=== PATIENT | female | born 2000 | race Caucasian/White ===

== ENCOUNTER 2020-09-05 19:07 | Emergency (ER) | payer BC, SELFPAY ==
[2020-09-05 19:07] VITALS: BP 125/79; PULSE 83; RESP 20; TEMP 36.4; O2SAT 98; BMI 20.5
--- NOTE | 2020-09-05 19:42 | ED.VIS.GEN ---
History of Present Illness Chief Complaint: Anxiety Detail of Chief Complaint: Panic attack Informant: Patient Onset: Hours Context: Sudden Onset Timing: - - Essentially resolved Quality: Palpitations, chest pain, shortness of breath, tingling anxiety Location: Generalized Current Severity: - - Essentially resolved Maximum Severity: Severe Worsened by: No inciting factor. Patient is not taking her medications as prescribed. 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 She had a panic attack. She complained of tingling in her extremities, palpitations, chest pain, shortness of breath and nausea. Nothing triggered her attack. She reports noncompliance with medication. She made the comment self-destructive behavior . Patient denies suicidal homicidal ideation. She does report blurred vision. Her blurred vision improves with blinking. Suspect this is due to tearing. She has a mild headache presently. She denies ringing in ears decreased hearing. She denies upper respiratory symptoms. Her chest pain is resolved. Her dyspnea is resolved. The tingling has resolved. Prior similar symptoms: Yes Recent Illness/Hospitalization: No - Past Medical History (1) Anxiety disorder Status: Acute Past Medical History - Allergies and Home Meds Allergies/Adverse Reactions: Allergies Penicillins [PCN] Allergy (Verified 09/05/20 19:09) Hives Primary Care Physician: NOT,DEFINED [Primary Care Provider] - Prior records reviewed: No Surgical History: no surgical history Lives: With Family Smoking Status: Unknown if ever smoked Drugs: None Review of Systems General: Denies: Chills, Fever, Malaise Eyes: Reports: Blurred Vision - bilaterally. Denies: Visual changes - bilaterally, Diplopia ENT: Denies: Rhinorrhea, Sore throat Cardiovascular: Reports: Chest pain, Palpitations Respiratory: Reports: Dyspnea. Denies: Cough, Sputum, Dyspnea on exertion Gastrointestinal: Reports: Nausea. Denies: Abdominal pain, Vomiting, Diarrhea, Constipation, Melena, Hematochezia Genitourinary: Denies: Dysuria, Hematuria, Frequency Musculoskeletal: Denies: Back pain, Extremity Pain Skin: Denies: Rash Neurological: Reports: Headache, Parasthesia. Denies: Weakness Psych: Reports: Anxiety Endocrine: Denies: Polyuria, Polydipsia Physical Exam Vital Signs/Narrative: Vital Signs Temp Pulse Resp BP Pulse Ox 09/05/20 19:07 97.5 F L 83 20 H 125/79 H 98 Inital Vital Signs reviewed: Yes General: Well nourished, Well developed, No Acute Distress Head: Normocephalic, Atraumatic Eyes: Perrl, EOMI ENT: Moist mucous membranes, No rhinorrhea Neck: Supple, Nontender Cardiovascular: Regular rate, Regular rhythm, No murmurs, Normal S1, Normal S2 Respiratory: No distress, CTA bilaterally, Chest nontender Extremities: Nontender, No edema Skin: Normal color, No rash Neurological: Alert, Oriented x3, Cranial nerves II-XII grossly intact, Normal Strength, Normal Sensation Psychological: Normal affect, Normal Mood Diagnostic/Tx/Re-eval - Medical Decision Making Patient had an anxiety attack. This is probably due to noncompliance with medication. Since she still has mild symptoms and has a ride home she was given Ativan. She states she will hold resume her medicines as prescribed. ED Disposition - Plan for ED Patient: Disposition: Home or Assisted Living Diagnosis: Panic attack Referrals: NOT,DEFINED [Primary Care Provider] - Additional Instructions: Follow-up with your doctor as needed.
--- NOTE | 2020-09-05 19:48 | ED.DCSUM_ITS ---
- ER Visit Summary Date of Service: 09/05/20 Chief Complaint: [] History of Present Illness: The patient is a 20 F [] Physical Examination: [] Test Results: [] Emergency Department Course and Treatment: [] Treatment Plan: [] Disposition: [] Impression: [] This note was generated with [employer] software. It may contain incorrect words, spelling, and punctuation that were not noted in review of the chart prior to signing ED Disposition - Plan for ED Patient: Disposition: Home or Assisted Living Diagnosis: Panic attack Instructions: ED Panic Attack Referrals: NOT,DEFINED [Primary Care Provider] - Additional Instructions: Follow-up with your doctor as needed.
[2020-09-05] MEDS: LORazepam 0.5 MG Tablet PO (19:58)
[2020-09-05 20:15] VITALS: RESP 14
== END 2020-09-05 20:16 | disposition home or self-care (01) ==
LOC: ED 20:11
PROVIDERS: Emergency Provider Emergency Medicine
DX: F41.0 Panic disorder [episodic paroxysmal anxiety] (principal); Z91.14 Patient's other noncompliance with medication regimen
CPT/HCPCS: 99283